=== PATIENT | female | born 1970 | race Caucasian/White ===

== ENCOUNTER 2021-05-22 10:27 | Outpatient (RCR) | payer BC, SELFPAY ==
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
--- NOTE | 2021-05-28 15:46 | HP.OTDCSUM ---
It has been my pleasure to treat AFSANEH FRAUSTO under orders from GABRIELLA Luther, for the diagnosis of left wrist sprain strain TFCC for a total of 1 visit(s). Please see the following information for a summary of their discharge status. Objective/Function: Due to high co-pay pt request HEP Patient Goals: Regain Strength Goal:: pt will demo understanding of isometric HEP by end of 1st session If there are questions or concerns regarding this patient's occupational therapy, please fell free to call me at [phone]. Thank you for the referral of this patient. Sincerely, Sadia Hernandes, OTR/L, CHT
== END 2021-05-22 19:00 | disposition home or self-care (01) ==
LOC: OT 10:27
PROVIDERS: Referring Provider Physician Assistant; Visit Provider Physician Assistant
DX: S63.592D Other specified sprain of left wrist, subsequent encounter (principal)
CPT/HCPCS: 97166

== ENCOUNTER → 2021-06-26 16:38 | Outpatient (CLI) | payer BC, SELFPAY ==
--- NOTE | 2021-06-26 16:38 | MRI_ITS ---
STUDY: MRI LEFT WRIST WITHOUT CONTRAST REASON FOR EXAM: Female, 51 years old. pain medial wrist TECHNIQUE: Standardized fat and water weighted pulse sequences were obtained in all 3 orthogonal planes. COMPARISON: X-ray dated 05/13/2021. FINDINGS: Subtle bone marrow edema of the lunate (coronal image 11 and 12 series 4). No acute fracture line. No acute dislocation. No acute cortical breakthrough. Remainder of the osseous structures are intact without acute abnormality. No significant cartilage loss. Minimal increased signal within the median nerve with mild median nerve flattening (axial image 11 series 6). Trifurcation of the median nerve distally (axial image 4 series 6). Normal flexor tendons. Minimal extensor carpi naris tendosynovitis (axial image 20 336). Remainder of the extensor tendons unremarkable. Small volume second carpometacarpal joint effusion. No additional significant joint effusions. Small volar ganglion cyst (axial images 19 and 20 series 6) measuring approximately 8 mm x 3 mm. Volar ganglion cyst (axial image 9 series 6) measuring 10 mm x 3.5 mm. Normal triangle fiber cartilage complex. Normal scapholunate ligament. Normal dorsal and volar capsular ligaments. MRI/Upper Ext Joint Only(Routine) IMPRESSION: Subtle lunate bone marrow edema (consider extremely early [place]''s disease and exclude trauma) Mild extensor carpi ulnaris tendosynovitis Mild median neuritis with distal trifurcation Small volume second carpal metacarpal joint effusion Small volar ganglion cysts Electronically Signed: Ahsan Elliott DO at 12:17 EDT Tel , Service support ,
== END ==
PROVIDERS: Visit Provider Physician Assistant
DX: S69.92XA Unspecified injury of left wrist, hand and finger(s), initial encounter (principal); X58.XXXA Exposure to other specified factors, initial encounter; M67.432 Ganglion, left wrist
CPT/HCPCS: 73221